=== PATIENT | female | born 1990 | race Caucasian/White ===

== ENCOUNTER 2022-10-01 07:48 | Emergency (ER) | payer MEDICAID, OTHER ==
[~2022-10-01] VITALS: Ht 160 cm; Wt 55.2 kg
[2022-10-01 08:13] LABS: Urine Bacteria None Seen /hpf (None Seen)
[2022-10-01 08:44] LABS: Basophils # (auto) 0 10 ^3/uL (0-0.2); Basophils % (auto) 0.6 % (0.0-2.0); Eosinophils # (auto) 0.4 10 ^3/uL (0-0.8); Eosinophils % (auto) 5.6 % (0.0-7.0); Hematocrit 41.2 % (36.0-46.0); Lymphocytes # (auto) 1.4 10 ^3/uL (0.4-5.4); Mean Corpuscular Hemoglobin 30.7 pg (28.0-32.0); Mean Corpuscular Volume 90.2 fL (80.0-100.0); Monocytes # (auto) 0.5 10 ^3/uL (0-1.3); Monocytes % (auto) 8.1 % (0.0-12.0); Neutrophils # (auto) 4.4 10 ^3/uL (1.6-8.6); Neutrophils % (auto) 64.7 % (37.0-80.0); Nucleated Red Blood Cells % 0.1 %; Red Blood Cells 4.57 10^6/uL (4.0-5.20); Red Cell Distribution Width 12.8 % (11.8-14.3); White Blood Cell 6.7 10^3/uL (4.4-10.8)
[2022-10-01 08:48] LABS: Urine Specific Gravity 1.023 (1.001-1.035)
[2022-10-01 08:49] LABS: Urine Blood Normal /uL (Negative)
[2022-10-01 08:50] LABS: Urine WBC FEW /hpf (0 - 5)
[2022-10-01] MEDS ORDERED: ONDANSETRON ODT 4 MG TAB PO ONE (09:45)
[2022-10-01] MEDS ORDERED: LIDOCAINE VISCOUS 2% 15ML UD PO ONE (09:45)
[2022-10-01] MEDS ORDERED: FAMOTIDINE 20 MG TAB PO ONE (09:45)
[2022-10-01] MEDS ORDERED: MAALOX PLUS or MAALOX 30 ML PO ONE (09:45)
[2022-10-01] MEDS ORDERED: CEPH-322 PO (09:49)
[2022-10-01 10:59] LABS: Potassium 3.6 mmol/L (3.5-5.1)
[2022-10-01 11:08] LABS: Albumin 3.7 g/dL (3.4-5.0)
[2022-10-01 11:14] LABS: Bilirubin, Total 0.6 mg/dL (0.2-1.0); Total Protein 7.5 g/dL (6.4-8.2)
[2022-10-01] MEDS ORDERED: OMEP-434 PO (11:21)
[2022-10-01 11:47] VITALS: BP 112/63
== END 2022-10-01 11:50 | disposition home or self-care (01) ==
LOC: ER 07:48
DX: N39.0 Urinary tract infection, site not specified (principal); K21.9 Gastro-esophageal reflux disease without esophagitis; Z32.02 Encounter for pregnancy test, result negative
CPT/HCPCS: 36415; 76705; 80053; 81001; 81025; 83690; 85025; 99284; Q0162

== ENCOUNTER 2024-05-21 10:43 | Emergency (ER) | payer MEDICAID ==
[~2024-05-21] VITALS: Ht 160 cm; Wt 65.0 kg
[~2024-05-21 10:43] MED LIST: CEPH250C PO; OMEP-434 PO
[2024-05-21 11:02] VITALS: BP 147/84; PULSE 83; RESP 20; O2SAT 100
== END 2024-05-21 13:07 | disposition left against medical advice (07) ==
LOC: ER 10:43
DX: T78.1XXA Other adverse food reactions, not elsewhere classified, initial encounter (principal); Z53.21 Procedure and treatment not carried out due to patient leaving prior to being seen by health care provider; X58.XXXA Exposure to other specified factors, initial encounter